=== PATIENT | female | born 1995 | race Caucasian/White ===

== ENCOUNTER 2017-12-27 14:46 | Emergency (ER) | payer OTHER ==
[2017-12-27 14:52] VITALS: BP 122/78; PULSE 79; TEMP 99.2; BMI 24.0
--- NOTE | 2017-12-27 14:53 | PDOC ---
Rapid Medical Evaluation Chief Complaint: Foreign Body (FB) Time Seen by Provider: 12/27/17 14:52 Medical Evaluation: Allergies Allergy/AdvReac Type Severity Reaction Status Date / Time No Known Allergies Allergy Verified 12/27/17 14:52 Vital Signs Temp Pulse Resp BP Pulse Ox 99.2 F 79 19 122/78 99 12/27/17 14:50 12/27/17 14:50 12/27/17 14:50 12/27/17 14:50 12/27/17 14:50 12/27/17 14:52 I have performed a brief in-person evaluation of this patient. The patient presents with a chief complaint of:possible bug inside L ear x 2 days Pertinent physical exam findings:defer to FT I have ordered the following:nothing The patient will proceed to the ED for further evaluation. Discharge Disposition - Diagnosis Foreign body - Referrals - Patient Instructions - Post Discharge Activity
--- NOTE | 2017-12-27 15:46 | PDOC ---
History of Present Illness - General Chief Complaint: Foreign Body (FB) Stated Complaint: Ear Problem Time Seen by Provider: 12/27/17 14:52 - History of Present Illness Initial Comments: 22-year-old female without comorbidities presents for evaluation of foreign body sensation in the left ear since yesterday. She feels a fly flew in her ear 12/27/17 15:45 Past History - Past Medical History Allergies/Adverse Reactions: Allergies Allergy/AdvReac Type Severity Reaction Status Date / Time No Known Allergies Allergy Verified 12/27/17 14:52 Home Medications: Ambulatory Orders NK [No Known Home Medication] 12/27/17 COPD: No - Suicide/Smoking/Psychosocial Hx Smoking History: Never smoked Information on smoking cessation initiated: No Hx Alcohol Use: No Drug/Substance Use Hx: No Substance Use Type: None Review of Systems - Review of Systems HEENTM: Yes: See HPI, Ear Pain All Other Systems: Reviewed and Negative *Physical Exam - Vital Signs Last Vital Signs Temp Pulse Resp BP Pulse Ox 99.2 F 79 19 122/78 99 12/27/17 14:50 12/27/17 14:50 12/27/17 14:50 12/27/17 14:50 12/27/17 14:50 - Physical Exam Comments: HEAD: NC/AT EYES: Conjuntiva clear Ears: Canals and TM's normal NOSE: No d/c NECK: Supple without adenopathy MS: Full ROM in all joints without edema NEUROLOGIC: No gross sensory or motor deficits, NVID SKIN: Normal color and temperature no lesions or rashes 12/27/17 15:45 Medical Decision Making - Medical Decision Making There is no foreign body in the left ear 12/27/17 15:45 *DC/Admit/Observation/Transfer Diagnosis at time of Disposition: Ear pain, left Diagnosis at time of Disposition: (Ruled Out): Foreign body - Discharge Dispostion Disposition: HOME Condition at time of disposition: Stable Decision to Admit order: No - Referrals Referrals: Mike Mujica MD [Staff Physician] - - Patient Instructions Additional Instructions: Return to the emergency room should her symptoms worsen or go unresolved. The meantime follow-up with otolaryngology in the next 1-2 days for further evaluation and treatment options. There was no foreign body in her left ear today. - Post Discharge Activity
== END 2017-12-27 16:20 | disposition home or self-care (01) ==
LOC: JERFT 14:46
DX: H92.02 Otalgia, left ear (principal)
CPT/HCPCS: 99281-25

== ENCOUNTER 2019-11-15 18:55 | Emergency (ER) | payer BC ==
[2019-11-15 19:05] VITALS: BP 127/80; PULSE 55; TEMP 98.7; BMI 23.9
[2019-11-15 20:39] LABS: BASO % 0.3 % (0-2.0); EOS % 4.5 % (0-4.5); HEMATOCRIT 39.3 % (32.4-45.2); HEMOGLOBIN 13.1 GM/dL (10.7-15.3); LYMPH % 19.8 % (8-40); MCH 27.4 pg (25.7-33.7); MCHC 33.3 g/dl (32.0-36.0); MEAN CELL VOLUME 82.3 fl (80-96); MEAN PLT VOLUME 9.8 fl (7.5-11.1); MONO % 7.4 % (3.8-10.2); PLATELET COUNT 198 K/MM3 (134-434); RBC 4.77 M/mm3 (3.60-5.2); RDW 13.7 % (11.6-15.6); WHITE BLOOD COUNT 7.7 K/mm3 (4.0-10.0)
[2019-11-15 21:13] LABS: ALBUMIN 3.9 g/dl (3.4-5.0); BILIRUBIN,TOTAL 0.5 mg/dL (0.2-1); BLOOD UREA NITROGEN 14.2 mg/dL (7-18); CALCIUM 8.9 mg/dL (8.5-10.1); CREATININE 0.9 mg/dL (0.55-1.3); POTASSIUM 4.1 mmol/L (3.5-5.1); TOT PROT 7.3 g/dl (6.4-8.2)
== END 2019-11-15 21:23 | disposition home or self-care (01) ==
LOC: JER 18:55
DX: R07.9 Chest pain, unspecified (principal)
CPT/HCPCS: 36415; 71046-TC-FY; 80053; 84484; 84703; 85025; 93005; 93010; 99284-25